=== PATIENT | female | born 1990 | race Caucasian/White ===

== ENCOUNTER 2016-06-30 13:31 | Emergency (ER) | payer MEDICAID, OTHER ==
[~2016-06-30] VITALS: Ht 152.4 cm; Wt 51.3 kg
[2016-06-30 13:47] VITALS: Ht 152.4 cm; Wt 51.3 kg
[2016-06-30 14:56] LABS: ADD SCAN DIFF NO
[2016-06-30 15:17] LABS: ADD UMIC YES; URINE BILIRUBIN (Dip) NEGATIVE (NEGATIVE); URINE BLOOD (Dip) NEGATIVE (NEGATIVE); URINE COLOR LT. YELLOW (YELLOW); URINE GLUCOSE (Dip) NEGATIVE (NEGATIVE); URINE KETONES (Dip) NEGATIVE (NEGATIVE); URINE LEUKOCYTE ESTERASE (Dip) NEGATIVE (NEGATIVE); URINE NITRITE (Dip) NEGATIVE (NEGATIVE); URINE TOTAL PROTEIN (Dip) NEGATIVE (NEGATIVE); URINE UROBILINOGEN (Dip) 0.2 E.U./dL (0.1-1.0)
--- NOTE | 2016-06-30 15:32 | RADRPT ---
PROCEDURE: US OB. CLINICAL INDICATION: Pelvic pain, viability TECHNIQUE: Transabdominal views of the pelvis are available for review. COMPARISON: No prior studies are available for comparison. FINDINGS: There is a single intrauterine gestation with the crown-rump length measuring 4.8 cm, corresponding to a gestational age of 11 weeks and 4 days. The heart rate is noted at 173 bpm. The ovaries are not visualized. There is no free fluid. RPTAT: AA IMPRESSION: Single live intrauterine with an estimated gestational age of 11 weeks and 4 days, based o n ultrasound measurements. TRE based on ultrasound measurements is 01/15/17. .Yaw Collier MD, MD Date Time Electronically viewed and signed by .Yaw Collier MD, on 06/30/2016 15:32 .S/
[2016-06-30 15:36] LABS: BASOPHIL # 0.1 10^3/ul (0.0-0.1); BASOPHILS % 0.4 % (0.0-2.0); EOSINOPHILS # 0.1 10^3/ul (0.0-0.5); EOSINOPHILS % 1.2 % (0.0-7.0); HEMATOCRIT 37.4 % (37.0-47.0); HEMOGLOBIN 12.7 g/dl (12.0-16.0); LYMPHOCYTES % 26.3 % (15.0-51.0); MEAN CORPUSCULAR HEMOGLOBIN 30.2 pg (29.0-33.0); MEAN PLATELET VOLUME 9.4 fl (7.4-10.4); MONOCYTE # 0.8 10^3/ul (0.3-0.9); MONOCYTES % 6.9 % (0.0-11.0); NEUTROPHIL # 7.4 10^3/ul (1.6-7.5); NEUTROPHILS % 64.9 % (39.0-77.0); PLATELET COUNT 259 10^3/UL (140-415); RED CELL DISTRIBUTION WIDTH 12.4 % (11.5-14.5); WHITE BLOOD COUNT 11.4 10^3/ul (4.8-10.8)
[2016-06-30 15:44] LABS: SQUAMOUS EPITHELIAL CELL,UR MANY; URINE RBCS NONE SEEN /HPF (0)
[2016-06-30] MEDS ORDERED: ACET325T33 PO (16:09)
--- NOTE | 2016-06-30 16:50 | ERD ---
ER Documentation Chief Complaint Date/Time DATE: 06/30/16 TIME: 16:46 Chief Complaint LLQ ABD PAIN X2 DAYS. SENT BY PCP TO R/O ECTOPIC. HPI This is a 26-year-old female stating that she is 9 weeks presenting to the emergency department complaining of left sided pelvic pain for the past 2 days. Patient denies any vaginal bleeding. She states that her pelvic pain is crampy and rates it 8 out of 10. Patient states that she went to her [facility] Dr.Parvaneh Torres for further evaluation management. Denies any nausea, vomiting, diarrhea, fever, dysuria. ROS All systems reviewed and are negative except as per history of present illness. Medications Home Meds Active Scripts Acetaminophen* (Tylenol*) 325 Mg Tablet, 2 TAB PO Q6 Y for PAIN AND OR ELEVATED TEMP, #30 TAB Prov:MERRITT HOUGH PA-C 06/30/16 PMhx/Soc Medical and Surgical Hx: pt denies Medical Hx History of Surgery: Yes (RIGHT OVARY CYST REMOVAL, APPY X1YEAR) Anesthesia Reaction: No Hx Alcohol Use: No Hx Substance Use: No Hx Tobacco Use: No Smoking Status: Never smoker Physical Exam Vitals Vital Signs Date Time Temp Pulse Resp B/P Pulse Ox O2 Delivery O2 Flow Rate FiO2 06/30/16 13:47 98.3 75 16 100/65 100 Physical Exam General: well-developed/well-nourished, in no apparent distress, non-toxic appearing HENT: NC/AT, bilateral tympanic membrane is normal with good cone of light, nares patent, oropharynx clear without exudates Eyes: Conjunctiva normal, PERRLA, EOMI Neck: Supple, no lymphadenopathy Pulm: CTA bilaterally, no rales, rhonchi, or wheezing heard CV: Normal S1S2 GI: Soft, non-distended, normal bowel sounds, tender to palpation in pelvic region, negative rosvings, negative ledbetter's Back: No midline tenderness, no masses, No CVAT Ext: No clubbing, cyanosis, or edema Neuro: Alert and Orientated, gait normal Skin: Intact, normal turgor Psych: Normal mood and mentation Result Diagram: 06/30/16 1444 Results 24 hrs Laboratory Tests Test 06/30/16 14:44 Basophils # 0.110^3/ul Basophils % 0.4% Beta HCG, Quantitative 73557.0mIU/ml Eosinophils # 0.110^3/ul Eosinophils % 1.2% Hematocrit 37.4% Hemoglobin 12.7g/dl Lymphocytes # 3.010^3/ul Lymphocytes % 26.3% Mean Corpuscular Hemoglobin 30.2pg Mean Corpuscular Hemoglobin Concent 34.0g/dl Mean Corpuscular Volume 89.0fl Mean Platelet Volume 9.4fl Monocytes # 0.810^3/ul Monocytes % 6.9% Neutrophils # 7.410^3/ul Neutrophils % 64.9% Nucleated Red Blood Cells # 0.010^3/ul Nucleated Red Blood Cells % 0.0/100WBC Platelet Count 93120^3/UL Red Blood Count 4.2010^6/ul Red Cell Distribution Width 12.4% Urine Amorphous Phosphates MANY Urine Bilirubin NEGATIVE Urine Clarity CLOUDY Urine Color LT. YELLOW Urine Glucose NEGATIVE% Urine Hemoglobin NEGATIVE Urine Ketones NEGATIVE Urine Leukocyte Esterase NEGATIVE Urine Microscopic RBC NONE SEEN/HPF Urine Microscopic WBC 0-2/HPF Urine Nitrite NEGATIVE Urine Specific [place] 1.020 Urine Squamous Epithelial Cells MANY Urine Starch FEW Urine Total Protein NEGATIVE Urine Urobilinogen 0.2 E.U./dL Urine pH 8.5 White Blood Count 11.410^3/ul Procedures/MDM This is a 26-year-old female stating that she is 9 weeks presenting to the emergency room complaining of pelvic pain for the past 2 days , patient was sent by her [facility] who sent her here for further evaluation management due to positive test. Patient did not have any evidence of vaginal bleeding. I will low suspicion for ectopic , urinary tract infection, diverticulitis, complete due to physical examination and diagnostic testing. Patient appears well and stable. She is smiling and speaking clearly. Lab work was done in the ED. CBC did not show any evidence of significant leukocytosis or anemia. Patient had a white count 11.4 which is likely due to stress reaction. Beta hCG was 46,910 within normal limits. An ultrasound was done in the ED did not show any evidence of a portion or ectopic . UA did not show any evidence of UTI or hemoglobin. I discussed with patient to follow-up with her [facility] tomorrow, I discussed return to the ER for any worsening symptoms. Patient stable for discharge. Prescription for Tylenol was provided. Patient understands and agrees with plan OB US: Single live intrauterine with an estimated gestational age of 11 weeks and 4 days, based on ultrasound measurements. TRE based on ultrasound measurements is 01/15/17. Departure Diagnosis: Primary Impression: Pelvic pain in Condition: Stable Patient Instructions: Pelvic Pain, Unknown Cause, Pelvic Pain In : Unclear (2-3 Trimester) Referrals: doss doctora Additional Instructions: Visite a doss gena lema para un EXAMEN.Regrese a estas instalaciones si no se mejora dg esperbamos o dg le dijimos. Regrese a estas instalaciones si no se mejora dg esperbamos o dg le dijimos. [place] toda la medicina liliam y dg se le indic. MERRITT HOUGH PA-C Jun 30, 2016 16:50
== END 2016-06-30 16:21 | disposition home or self-care (01) ==
LOC: FTE 13:31
DX: O26.891 Other specified pregnancy related conditions, first trimester (principal); R10.2 Pelvic and perineal pain; Z3A.11 11 weeks gestation of pregnancy
CPT/HCPCS: 36415; 76801; 81001; 81003; 84702; 85025; Z7502

== ENCOUNTER 2016-11-16 14:03 | Inpatient (IN) | payer MEDICAID ==
[~2016-11-16] VITALS: Ht 149.9 cm; Wt 58.6 kg
[~2016-11-16 14:03] MED LIST: ACET325T33 PO
[2016-11-16 14:26] VITALS: BP 105/67; PULSE 84; RESP 18; Ht 149.9 cm; Wt 58.6 kg
[2016-11-16] MEDS ORDERED: PRENAT PO (14:26)
[2016-11-16] MEDS: LACTATED RINGER'S 1,000 ML IV* SCH ×2 (15:27→19:25)
[2016-11-16] MEDS ORDERED: TERBUTALINE 1 MG/ML INJ SC ONE (15:30)
[2016-11-16 15:39] LABS: ADD UMIC YES; UR ASCORBIC ACID NEGATIVE (NEGATIVE); UR BILIRUBIN (Dip) NEGATIVE (NEGATIVE); UR BLOOD (Dip) NEGATIVE (NEGATIVE); UR CLARITY SLIGHTLY CLOUDY (CLEAR); UR COLOR YELLOW (YELLOW); UR GLUCOSE (Dip) NEGATIVE (NEGATIVE); UR KETONES (Dip) TRACE mg/dL (NEGATIVE); UR LEUKOCYTE ESTERASE (Dip) 3+ Leu/ul (NEGATIVE); UR NITRITE (Dip) NEGATIVE (NEGATIVE); UR RBC 1 /HPF (0-5); UR SPECIFIC GRAVITY (Dip) 1.018 (1.003-1.030); UR SQUAMOUS EPITHELIAL CELL FEW /HPF (FEW); UR TOTAL PROTEIN (Dip) NEGATIVE (NEGATIVE); UR UROBILINOGEN (Dip) NEGATIVE (NEGATIVE)
[2016-11-16 15:42] LABS: UR MUCUS FEW /HPF (NONE SEEN)
--- NOTE | 2016-11-16 16:28 | RADRPT ---
PROCEDURE: CERVICAL LENGTH ULTRASOUND CLINICAL INDICATION: labor. Uncertain dates. TECHNIQUE: Trans-vaginal imaging of the cervical canal was performed utilizing dubon-scale imaging. Sagittal and transverse images were obtained. Trans-abdominal images were also obtained. The fadi ges were reviewed on a PACS workstation. COMPARISON: None. FINDINGS: There is a single live intrauterine . heart rate is 146 beats per minute. Position is cephalic and placenta is anterior grade II. There is no placenta previa. The cervix is closed with a length of 3.6 cm. IMPRESSION: 1. Cervical length is 3.6 cm. RPTAT: QQ .Konstantin Elliott MD, MD Date Time Electronically viewed and signed by .Konstantin Elliott MD, on 11/16/2016 16:28 .R/
--- NOTE | 2016-11-16 16:56 | RADRPT ---
PROCEDURE: US biophysical profile. CLINICAL INDICATION: History of duodenal atresia. TECHNIQUE: Multiple sonographic images of the uterus were obtained. The images were revi ewed on a PACS workstation. COMPARISON: No prior studies are available for comparison. FINDINGS: There is a single live intrauterine gestation. heart rate is 141 beats per minute. The position is cephalic. The placenta is anterior grade 1 with no abruption or previa. The GOKUL is 30.0 cm. (Normal = 5-20 cm.) Dilated stomach and duodenum are likely visualized in the fetus. Breathing Movement: 2 Gross Body Movement: 2 Tone: 2 Qualitative Amniotic Fluid Volume: 2 TOTAL: 8 IMPRESSION: 1. The biophysical score is 8/8. 2. Polyhydramnios. 3. Dilated stomach and duodenum likely visualized in the fetus. (Double bubble sign). RPTAT: QQ .Konstantin Elliott MD, Date Time Electronically viewed and signed by .Konstantin Elliott MD, on 11/16/2016 16:56 .R/
--- NOTE | 2016-11-16 18:09 | TRIAGE ---
OB Triage Datetime Report Generated by CPN: 11/16/2016 18:09 Datetime: 11/16/2016 16:30 Stage of : OB Triage Maternal Assessment Level of Consciousness: Fully Conscious Labor Evaluation Frequency: 2UC/HR Monitor Mode: External Duration (sec)2399: 60-90 Quality: Moderate Resting Tone [place]: Relaxed Heart Rate FHR Baseline Rate: 135 Monitor Mode: External US Variability: Moderate 6-25 bpm Accelerations: 15X15 Decelerations: None Pain Assessment Pain Scale: 4 Pain Presence: Intermittent Pain Type: Cramping Pain Location: Abdomen Pain Goal: 3 Pain Relief Measures: Comfort Measures Membrane Status: Intact Vaginal Bleeding: None Datetime: 11/16/2016 15:30 Stage of : OB Triage Maternal Assessment Level of Consciousness: Fully Conscious Labor Evaluation Frequency: 1-8 Monitor Mode: External Duration (sec)2399: 60-180 Quality: Moderate Resting Tone [place]: Relaxed Heart Rate FHR Baseline Rate: 135 Monitor Mode: External US Variability: Moderate 6-25 bpm Accelerations: 15X15 Decelerations: None Category: Category I Pain Assessment Pain Scale: 4 Pain Presence: Intermittent Pain Type: Cramping Pain Location: Abdomen Pain Goal: 3 Pain Relief Measures: Comfort Measures Membrane Status: Intact Vaginal Bleeding: None Datetime: 11/16/2016 15:25 Vaginal Exam Dilatation (cms): 0.5 Effacement (%): 40 Station: -2 Exam By: veronica Vaginal Bleeding: None Cervix, Consistency: Firm Cervix, Position: Posterior Datetime: 11/16/2016 14:23 Assessment Type: Triage Maternal Assessment Level of Consciousness: Fully Conscious DTR's/Clonus: DTRs 2+; No Clonus Headache: Denies Blurred Vision: No Respiratory Effort: Unlabored; Regular Rhythm; Equal Expansion Breath Sounds, Left: Clear and Equal Breath Sounds, Right: Clear and Equal Nausea/Vomiting: Denies RUQ Epigastric Pain: Denies Lower Extremities Edema: None Degree: None Upper Extremities Edema: None Degree: None Facial Edema: None Fall Risk Assessment History of Falling: (0) No Secondary Diagnosis: (0) No Ambulatory Aid: (0) Bedrest/Nurse Assist IV Therapy: (0) No Gait: (0) Normal/Bedrest/Immobile Mental Status: (0) Oriented to Own Ability Fall Score: 0 Fall Risk Score Definition: No Risk: No action required Datetime: 11/16/2016 14:21 Time of Arrival: 11/16/2016 14:02 EGA: 32.5 Arrived By: Ambulatory Arrived From: Office Chief Complaint: PT SENT FROM CLINIC FOR EVAL OF PTL Movement: Present Contractions: Irregular Time Contractions Began: 11/15/2016 16:00 Rupture of Membranes: Denies Vaginal Bleeding: None Vaginal Discharge: Denies Recent Sexual Intercouse: Denies Abdominal Trauma: Not Applicable Patient Complaints: Contractions; Cramping; Back Pain Time Provider Notified: 11/16/2016 14:36 Provider Notified: CASA Initial Plan: FFN, UA, TERB, IV HYDRATION, CVL Datetime: 11/16/2016 14:19 Monitor Mode: External Monitor Mode: External US
--- NOTE | 2016-11-16 20:14 | HP ---
Date/Time of Note Date/Time of Note DATE: 11/16/16 TIME: 20:08 OB - History Hx of Present Free Text/Dictation Date: November 16, 2016 Chief Complaint: Uterine contractions : 3 Para: 2 Spontaneous : 0 Therapeutic : 0 Care: Good Care Ultrasounds: Abnormal US findings (Called by Dr. Craig the and informed that the patient has duodenal atresia. Patient also was noted to have polyhydramnios likely secondary to duodenal atresia. Her gestational glucose screening test was negative.), Other Abnormal Ultrasound Findings: Polyhydramnios Duodenal atresia Obstetrical Complications: Other (Polyhydramnios and duodenal atresia) Past Family/Social History * Past Medical, Surgical, Family and Obstetric Histories reviewed from chart. OB Admission Exam Vital Signs Vital Signs Vital Signs Date Time Temp Pulse Resp B/P Pulse Ox O2 Delivery O2 Flow Rate FiO2 11/16/16 14:26 98.5 84 18 105/67 98 Room Air Physical Exam HEENT: WNL Heart: Rhythm Normal Lungs: Clear Abdomen: WNL Cervical Dilatation: None Effacement: 0% Station: -3 Membranes: Intact Amniotic Fluid: Other (Polyhydramnios) Heart Rate: 130's Accelerations: Accelerations Present Decelerations: No Decelerations Varibility: Moderate Contractions on Admission: < 5 Minutes Apart Intensity: Moderate OB Assessment/Plan Other Assessment: IUP at 32 weeks and 5 days contractions fibronectin is positive, however cervix was long and closed and cervical length more than 2.5 cm Status post 1 dose of terbutaline and IV hydration, patient's contractions significantly spaced out Likely contractions are related to false labor pain Polyhydramnios likely due to duodenal atresia Increased risk for labor or abruption Ultrasound negative for abruption Patient does not have clinical signs and symptoms or abruption Patient will be admitted to antepartum service for monitoring Consider steroid due to polyhydramnios and risk of delivery Contractions resolved with a dose of terbutaline and IV hydration. We will continue to observe closely Will start steroid Consider magnesium if evidence of labor noted for neuro prophylaxis Neonatology/perinatology consultation tomorrow HEATHER CORMIER MD Nov 16, 2016 20:14
[2016-11-16] MEDS: BETAMET NA PHOS/AC(6 MG/ML) 5ML INJ IM SCH (20:40)
[2016-11-17] VITALS (7 sets, daily range): BP systolic 108–119; BP diastolic 64–75; PULSE 75–88; RESP 18
[2016-11-17] MEDS: BETAMET NA PHOS/AC(6 MG/ML) 5ML INJ IM SCH (02:37)
[2016-11-17] MEDS: LACTATED RINGER'S 1,000 ML IV* SCH (02:55)
[2016-11-17 02:59] LABS: ADD SCAN DIFF NO
[2016-11-17] MEDS ORDERED: CEFAZOLIN 2 GM/50 ML (PMX) 50 ML IVPB ONE (02:59)
[2016-11-17] MEDS ORDERED: MAGNESIUM SULFATE 4 GM/100 ML 100 ML ONE (02:59)
[2016-11-17] MEDS ORDERED: OXYTOCIN 30 UNITS/LR 500 ML IV PRN ×2 (03:00→07:30)
[2016-11-17] MEDS ORDERED: MAGNESIUM SULFATE 4 GM/100 ML 100 ML IV ONE (03:00)
[2016-11-17] MEDS ORDERED: METHYLERGONOVINE 0.2 MG INJ IM PRN ×2 (03:00→07:30)
[2016-11-17] MEDS ORDERED: MISOPROSTOL 200 MCG TAB PR PRN ×2 (03:00→07:30)
[2016-11-17] MEDS ORDERED: CARBOPROST 250 MCG INJ IM PRN ×2 (03:00→07:30)
[2016-11-17] MEDS ORDERED: CEFAZOLIN 2 GM/50 ML (PMX) 50 ML IV SCH (03:00)
[2016-11-17 03:02] LABS: BASOPHILS % 0.1 % (0.0-2.0); HEMATOCRIT 34.2 % (37.0-47.0); HEMOGLOBIN 11.6 g/dl (12.0-16.0); LYMPHOCYTES # 1.3 10^3/ul (0.8-2.9); MEAN CORPUSCULAR HEMOGLOBIN 29.6 pg (29.0-33.0); MEAN CORPUSCULAR HGB CONC 33.9 g/dl (32.0-37.0); MEAN CORPUSCULAR VOLUME 87.2 fl (82.0-101.0); MEAN PLATELET VOLUME 9.4 fl (7.4-10.4); MONOCYTE # 0.1 10^3/ul (0.3-0.9); MONOCYTES % 1.2 % (0.0-11.0); NEUTROPHIL # 7.6 10^3/ul (1.6-7.5); NEUTROPHILS % 84.4 % (39.0-77.0); PLATELET COUNT 228 10^3/UL (140-415); RED BLOOD COUNT 3.92 10^6/ul (4.20-5.40); RED CELL DISTRIBUTION WIDTH 12.8 % (11.5-14.5)
[2016-11-17 03:18] LABS: INR 0.93; PROTIME 12.5 Sec (12.2-14.2)
[2016-11-17 03:19] LABS: PARTIAL THROMBOPLASTIN TIME 28.7 Sec (25.0-35.0)
[2016-11-17 03:20] LABS: ALBUMIN 3.8 g/dl (3.3-4.9); ALBUMIN/GLOBULIN RATIO 0.97; BILIRUBIN,INDIRECT 0.2 mg/dl (0-1.1); BILIRUBIN,TOTAL 0.2 mg/dl (0.2-1.3); CALCIUM 9.6 mg/dl (8.4-10.2); CREATININE 0.57 mg/dl (0.44-1.00); POTASSIUM 4.5 mmol/L (3.5-5.1); TOTAL PROTEIN 7.7 g/dl (6.1-8.1)
[2016-11-17] MEDS ORDERED: OXYTOCIN 10 UNIT INJ ONE (03:32)
--- NOTE | 2016-11-17 03:44 | RADRPT ---
PROCEDURE: Biophysical profile CLINICAL INDICATION: Deceleration of heart rate baseline, history of duodenal atresia TECHNIQUE: Color and dubon-scale ultrasound images of an intrauterine gestation were obtained. COMPARISON: 11/16/2016 FINDINGS: A single live intrauterine gestation is identified in cephalic position with an estimated hear t rate of 122 beats per minute. The placenta is located anteriorly and is grade 1. GOKUL is 29.8 cm. movement 2/2. tone 2/2. breathing movement 2/2. Qualitative AFV 2/2 Total biophysical profile 12/06 IMPRESSION: 12/06 biophysical profile. Polyhydramnios with amniotic fluid index equals 29.8 cm. RPTAT: HJES .Eduar Lake MD, MD Date Time Electronically viewed and signed by .Eduar Lake MD, on 11/17/2016 03:44 .S/
[2016-11-17] MEDS ORDERED: HYDROmorphONE 2 MG/ML SYG ONE (04:10)
[2016-11-17] MEDS ORDERED: SUCCINYLCHOLINE CHLORIDE 100 MG/5 ML SYG IV ONE (04:17)
[2016-11-17] MEDS ORDERED: ROCURONIUM 50 MG INJ ONE (04:18)
[2016-11-17] MEDS ORDERED: PROPOFOL 20 ML ONE (04:18)
[2016-11-17] MEDS ORDERED: PROCHLORPERAZINE 10 MG INJ IV PRN (05:00)
[2016-11-17] MEDS ORDERED: MEPERIDINE 25 MG INJ IV PRN (05:00)
[2016-11-17] MEDS ORDERED: OXYTOCIN 30 UNITS/LR 500 ML IV SCH (05:00)
[2016-11-17] MEDS ORDERED: ALBUTEROL 0.083% (NEB) 2.5 MG/3 ML AMP HHN ONE (05:00)
[2016-11-17] MEDS ORDERED: ONDANSETRON 4 MG INJ IV PRN (05:00)
[2016-11-17] MEDS ORDERED: METOCLOPRAMIDE 10 MG INJ IV PRN (05:00)
[2016-11-17] MEDS ORDERED: HYDROmorphONE (0.2 MG/ML) 10ML SYG IV PRN ×3 (05:00→07:30)
[2016-11-17] MEDS ORDERED: DIPHENHYDRAMINE 50 MG INJ IV PRN (05:00)
[2016-11-17] MEDS ORDERED: KETOROLAC 30 MG INJ IV PRN ×3 (05:00→19:00)
[2016-11-17] MEDS: HYDROmorphONE (0.2 MG/ML) 10ML SYG IV PRN ×3 (05:09→05:28)
--- NOTE | 2016-11-17 05:11 | QN ---
Documentation Comment Late entry note I was called by antepartum nurse that the baby had persistently low baseline for the last 20 minutes in the range of 90s. Presented to the patient bedside. Patient noted to be in left-sided position and receiving oxygen given by RN. Tracing reviewed. Noted that there is intermittent dropping the baseline to 90s but with good variability. Remained at the bedside to confirm maternal pulse separately from the heart tone. Occasional audible arrhythmia also noted. Tracing retrospectively reviewed and noted that baseline was In normal range with good variability. Patient is a known patient to Dr. Craig team. Presented earlier today to triage with complaint of contractions that resolved with IV hydration and a dose of terbutaline. Per oral report by Dr. Wilks. baby has duodenal atresia recommended to. [place] if any evidence of labor Patient was admitted for observation after presented with complaint of contractions. Symptoms resolved after IV hydration and a single dose of terbutaline. Due to presence of polyhydramnios and risk for delivery she received a dose of betamethasone in the triage. I contacted perinatology credit collections manager Dr. Morgan discussed about. heart rate low baseline possibility due to a concern for possibility of cardiac abnormality . Patient noted to have polyhydramnios and duodenal atresia. stat bedside BPP was requested that reported 8/8. There was normal tone during BPP observed. Patient was transferred to L&D in anticipation of possible immediate delivery due to drop in the baseline which was a change in the tracing. . Contractions noted on the monitor. late deceleration noted x 1. Marked variability noted. Cannot rule out abruption. Decision was made to proceed with immediate delivery. Tracing reviewed by Dr. Morgan who agreed with my plan of delivery due to nonreassuring heart tracing. Second dose of steroid was given. While we were preparing to go to the OR, NICU team also was notified to be present at the time of delivery. A bolus dose of magnesium was given for neuro prophylaxis. HEATHER CORMIER MD Nov 17, 2016 05:11
--- NOTE | 2016-11-17 05:23 | OPR ---
Operative Report Planned Procedure Free Text/Dictation Patient was transferred to OR for immediate delivery due to possible abruption and nonreassuring heart tracing Discussed with the paitent with car distributor regarding heart rate abnormality and need for Emergent section. Patient Was given a dose of bolus magnesium for neuro prophylaxis second dose of steroid. given as an accelerated dose. there is evidence of duodenal atresia and the ultrasound with polyhydramnios. NICU team and OR and anesthesia was notified . Procedure date Nov 17, 2016 Procedure(s) Primary emergency section Via Pfannenstiel skin incision Performed by: HEATHER CORMIER MD Assisting provider: JANETH ROBERTSON MD Anesthesiologist: DANYELLE FLORES MD Pre-procedure diagnosis 1. Nonreassuring heart tracing 2. IUP at 32 weeks 3. Polyhydramnios 4 suspected abruption. Anesthesia Type: general Procedure Description Under satisfactory [general] anesthesia, the patient was prepped and draped and placed in a supine position, tilted to the left. Pfannenstiel incision was made , carried through the subcutaneous tissue. Bleeders brought under control with electrocautery. Fascia incised to the length of the incision. Rectus muscles from the fascia, divided midline. Peritoneum exposed, entered through a transverse incision. Exploration of abdomen revealed gravid uterus. Transverse incision was made in the lower segment of the uterus, with careful attention to the bladder. . Amniotic sac ruptured. Evidence of localized abruption [noted. Excess amount of] amniotic fluid noted, that confirmed polyhydramnios . Baby's head was grasped and was brought up to the incision. then the baby's head was delivered through the incision while the automotive service assistant was applying fundal pressure. After delivery of the baby's head the rest of the baby's body was delivered and cord was immediately clamped and cut and baby was handed to NICU team as well as RT who where present in the OR immediately. Baby had a small cry on the table right after delivery and noted to have breathing immediately after delivery on the table. the baby was handed to the team for immediate attention. Could not obtain cord gas by the nursing staff due to technical issue and short remainder of cord. Baby's reported to be 3, 3 and 7. Trouble with intubation of the baby by NICU team and RT noted 4. Anesthesia involved and help with intubation. The placenta was delivered manually intact. Uterine cavity was cleaned with wet sponge and drainage established. Uterus closed in 2 layers using [1-0 Monocryl] in continuous fashion. Second layer used for imbrication. Peritoneal cavity irrigated with warm saline . Sponge, needle and instrument count reported to be correct. Abdominal peritoneum closed with [] 2-0 Monocryl continuously. Rectus muscle approximated with [2-0 Monocryl 1-0 Monocryl]. Fascia closed with [3-0 Monocryl in a continuous subcuticular fashion. Estimated blood loss [600]mL. Post-Procedure Findings: Live Baby [], Apgars [3,7,7 ] in vertex presentation Complications Low score Difficulty intubating Pt Condition post procedure: stable Post-procedure comments Baby was transferred to NICU Placenta was sent to pathology Nursing staff could not be able to obtain cord gas Physician Certification I, the undersigned physician, hereby certify that I have discussed the procedure described in this consent form with this patient (or the patient's legal senior customer service representative), including: * The risk and benefits of the procedure; * Any adverse reactions that may reasonably be expected to occur; * Any alternative efficacious methods of treatment which may be medically viable ; * The potential problems that may occur during recuperation; * Potential for blood transfusion and associated risks/benefits; and * Any research or economic interest I may have regarding this treatment. I further certify that the patient/legally responsible person was encouraged to ask question and that all questions were answered. HEATHER CORMIER MD Nov 17, 2016 05:22
[2016-11-17] MEDS ORDERED: OXYTOCIN 30 UNITS/LR 500 ML IVPB ONE (05:30)
--- NOTE | 2016-11-17 06:25 | DELSUM ---
Delivery Summary A-C Datetime Report Generated by CPN: 11/17/2016 06:25 DELIVERY PERSONNEL Machine Oiler: Rodriguez, Crissy MATERNAL INFORMATION Delivery Anesthesia: General Medications in Delivery: SEE ANESTHESIA RECORDS Placenta Cultured: Yes Maternal Complications: Abruptio Placenta; Other Other Maternal Complications: POLYHYDRAMNIOS LABOR SUMMARY EDC: 01/16/2017 00:00 No. Babies in Womb: 1 Attempted: No Labor Anesthesia: None LABOR INFORMATION Reason for Induction: Not Applicable Oxytocin: N/A Group B Beta Strep: Not Done Antibiotics # of Doses: 1 Antibiotics Time of Last Dose: 11/17/2016 03:20 Steroids Given: Partial Course Reason Steroids Not Administered: Imminent Delivery MEMBRANES Membranes Rupture Method: Artificial Rupture of Membranes: 11/17/2016 03:31 Length of Rupture (hr): 0.02 Amniotic Fluid Color: Clear Amniotic Fluid Amount: Large STAGES OF LABOR Stage 3 hr: 0 Stage 3 min: 1 CSECTION DELIVERY Primary Indication: Nonreassuring Stat Secondary Indication: Abruptio Placenta CSection Urgency: Emergency CSection Incidence: Primary Labor: N/A Elective: N/A CSection Incision: Lower Uterine Transverse BABY A INFORMATION Infant Delivery Date/Time: 11/17/2016 03:32 Method of Delivery: Born in Route : No : N/A Forceps: N/A Vacuum Extraction: N/A Shoulder Dystocia : N/A SHOULDER DYSTOCIA BABY A Infant Delivery Date/Time: 11/17/2016 03:32 PRESENTATION/POSITION BABY A Presentation: Cephalic Cephalic Presentation: Vertex Vertex Position: Left Occipital Anterior Breech Presentation: N/A PLACENTA INFORMATION BABY A Placenta Delivery Time : 11/17/2016 03:33 Placenta Method of Delivery: Manual Removal Placenta Status: Delivered SCORES BABY A Heart Rate 1 min: Slow, Below 100 bpm Resp Effort 1 min: Slow, Irregular Reflex Irritability 1 min: Grimace Muscle Tone 1 min: Flaccid Color 1 min: Blue/Pale Resuscitation Effort 1 min: Tactile Stimulation; Oxygen; PPV/NCPAP SCORE 1 MIN: 3 Heart Rate 5 min: Slow, Below 100 bpm Resp Effort 5 min: Slow, Irregular Reflex Irritability 5 min: Grimace Muscle Tone 5 min: Flaccid Color 5 min: Blue/Pale Resuscitation Effort 5 min: Tactile Stimulation; Oxygen; PPV/NCPAP SCORE 5 MIN: 3 Heart Rate 10 min: >100 bpm Resp Effort 10 min: Good Cry Reflex Irritability 10 min: Grimace Muscle Tone 10 min: Some Flexion of Extrem Color 10 min: Body Milfay, Extremit Blue Resuscitation Effort 10 min: Oxygen; PPV/NCPAP; Endotracheal Intubation SCORE 10 MIN: 7 INFANT INFORMATION BABY A Gestational Age at Delivery: 31.3 Gestational Status: - <34 Weeks Infant Outcome : Liveborn Condition : Critical Infant Sex: Male IDENTIFICATION/MEDS BABY A ID Band Number: [id number] ID Band Location: Right Leg; Left Arm Sensor Applied: No Sensor Location : Other Vitamin K Given : Not Given Erythromycin Given: Not Given WEIGHT/LENGTH BABY A Infant Birthweight (gm): 1895 Weight (lb): 4 Infant Weight (oz): 3 Infant Length (in): 16.00 Length (cm): 40.64 CORD INFORMATION BABY A No. Cord Vessels: 3 Nuchal Cord : N/A Cord Blood Taken: Yes Suction: Mouth; Nose ASSESSMENT BABY A Complications: Extended Bradycardi Complications- Other: SEE NICU RECORD FOR BABY INFORMATION Physical Findings at Delivery: Within Normal Limits Gas Operations Superintendent/ALS Called : Yes Transferred To: NICU
[2016-11-17] MEDS ORDERED: DEXAMETHASONE 4 MG/ML 1 ML INJ ONE (07:00)
[2016-11-17] MEDS ORDERED: PHENYLephrine (100 MCG/ML) 5ML SYG ONE (07:00)
[2016-11-17] MEDS ORDERED: ONDANSETRON 4 MG INJ ONE (07:00)
[2016-11-17] MEDS ORDERED: OXYTOCIN 30 UNITS/LR 500 ML BAG IV ONE (07:00)
[2016-11-17] MEDS ORDERED: METOCLOPRAMIDE 10 MG INJ ONE (07:00)
[2016-11-17] MEDS ORDERED: LANOLIN 7 GM TUBE TOP PRN (07:30)
[2016-11-17] MEDS ORDERED: ACETAMINOPHEN/CODEINE #3 TAB PO PRN (07:30)
[2016-11-17] MEDS ORDERED: PRENATAL VITAMIN PO SCH (09:00)
[2016-11-17] MEDS: OXYTOCIN 30 UNITS/LR 500 ML IV SCH ×2 (09:26→11:10)
[2016-11-17 11:05] LABS: ADD SCAN DIFF NO
[2016-11-17 11:21] LABS: BASOPHILS % 0.1 % (0.0-2.0); HEMATOCRIT 28.4 % (37.0-47.0); HEMOGLOBIN 9.6 g/dl (12.0-16.0); LYMPHOCYTES # 1.1 10^3/ul (0.8-2.9); LYMPHOCYTES % 5.4 % (15.0-51.0); MEAN CORPUSCULAR HEMOGLOBIN 29.3 pg (29.0-33.0); MEAN CORPUSCULAR HGB CONC 33.8 g/dl (32.0-37.0); MEAN CORPUSCULAR VOLUME 86.6 fl (82.0-101.0); MEAN PLATELET VOLUME 9.5 fl (7.4-10.4); MONOCYTE # 0.8 10^3/ul (0.3-0.9); MONOCYTES % 3.7 % (0.0-11.0); NEUTROPHIL # 18.4 10^3/ul (1.6-7.5); NEUTROPHILS % 90.4 % (39.0-77.0); PLATELET COUNT 221 10^3/UL (140-415); RED BLOOD COUNT 3.28 10^6/ul (4.20-5.40); RED CELL DISTRIBUTION WIDTH 12.7 % (11.5-14.5); WHITE BLOOD COUNT 20.4 10^3/ul (4.8-10.8)
[2016-11-17] MEDS ORDERED: IBUPROFEN 600 MG TAB PO SCH (12:00)
[2016-11-17] MEDS: LACTATED RINGER'S 1,000 ML IV SCH ×2 (14:04→22:41)
[2016-11-18] VITALS: BP 96/60; PULSE 70; RESP 18
[2016-11-18 04:00] VITALS: BP 100/61; PULSE 78; RESP 18
[2016-11-18] MEDS: LACTATED RINGER'S 1,000 ML IV SCH ×2 (06:03→07:10)
[2016-11-18] MEDS: IBUPROFEN 600 MG TAB PO SCH ×4 (06:30→23:31)
[2016-11-18 08:00] VITALS: BP 101/70; PULSE 81; RESP 19
[2016-11-18 16:00] VITALS: BP 107/67; PULSE 80; RESP 17
[2016-11-18 16:10] LABS: BASOPHILS % 0.1 % (0.0-2.0); HEMATOCRIT 25.6 % (37.0-47.0); HEMOGLOBIN 8.3 g/dl (12.0-16.0); LYMPHOCYTES # 1.8 10^3/ul (0.8-2.9); LYMPHOCYTES % 11.6 % (15.0-51.0); MEAN CORPUSCULAR HEMOGLOBIN 28.6 pg (29.0-33.0); MEAN CORPUSCULAR HGB CONC 32.4 g/dl (32.0-37.0); MEAN CORPUSCULAR VOLUME 88.3 fl (82.0-101.0); MEAN PLATELET VOLUME 9.8 fl (7.4-10.4); MONOCYTE # 1.1 10^3/ul (0.3-0.9); MONOCYTES % 7.1 % (0.0-11.0); NEUTROPHIL # 12.6 10^3/ul (1.6-7.5); NEUTROPHILS % 80.6 % (39.0-77.0); PLATELET COUNT 252 10^3/UL (140-415); RED CELL DISTRIBUTION WIDTH 13.2 % (11.5-14.5); WHITE BLOOD COUNT 15.6 10^3/ul (4.8-10.8)
--- NOTE | 2016-11-18 16:11 | PN ---
Date/Time of Note Date/Time of Note DATE: 11/18/16 TIME: 16:04 OB Subjective Subjective Subjective .Post day1 She had an emergency on November 17, 2016 suspected abruptio placentae Today she is afebrile but her wbc is 20,000 ,lying in her bed seems she is in no distress except some mild incisional pain her abdomen is soft her incision is dry lochia moderate extremities normal no calf tenderness no dyspnea no shortness of breath recommended repeat CBC currently she is on Ancef 2 g every 8 hours OB Objective Heart: Rhythm Normal Lungs: Clear, Equal Abdomen: WNL Extremities: Normal Reflexes: Normal SUJATHA RODRIGUEZ MD Nov 18, 2016 16:11
[2016-11-18] MEDS: CEFAZOLIN 2 GM/50 ML (PMX) 50 ML IVPB SCH ×2 (16:49→21:29)
[2016-11-18 19:45] VITALS: BP 101/59; PULSE 68; RESP 18
[2016-11-19 04:00] VITALS: BP_SYST 112; BP_SYST 97; BP_DIAS 54; BP_DIAS 64; PULSE 53; PULSE 60; RESP 18
[2016-11-19] MEDS: CEFAZOLIN 2 GM/50 ML (PMX) 50 ML IVPB SCH ×3 (05:37→22:07)
[2016-11-19] MEDS: IBUPROFEN 600 MG TAB PO SCH ×4 (05:37→23:31)
[2016-11-19 08:05] VITALS: BP 91/61; PULSE 53; RESP 20
--- NOTE | 2016-11-19 10:52 | PN ---
Date/Time of Note Date/Time of Note DATE: 11/19/16 TIME: 10:51 OB Subjective Subjective Subjective Post day 2 Afebrile abdomen soft bowel sounds lochia moderate extremity in enema recommended ambulation encouraged SUJATHA RODRIGUEZ MD Nov 19, 2016 10:52
[2016-11-19] MEDS ORDERED: NA PHOSPHATE/BIPHOS 133 ML ENEMA PR ONE (11:00)
[2016-11-19 16:00] VITALS: BP 100/61; PULSE 53; RESP 18
[2016-11-19 20:00] VITALS: BP 96/61; PULSE 65; RESP 15
[2016-11-20 03:44] VITALS: BP 108/72; PULSE 55; RESP 16
[2016-11-20] MEDS: CEFAZOLIN 2 GM/50 ML (PMX) 50 ML IVPB SCH ×2 (05:52→14:00)
[2016-11-20] MEDS: IBUPROFEN 600 MG TAB PO SCH ×2 (05:52→11:58)
[2016-11-20 07:51] VITALS: BP 103/72; PULSE 55; RESP 20
[2016-11-20] MEDS ORDERED: MEASLES,MUMPS,RUBELLA VACCINE INJ SC* ONE (09:00)
[2016-11-20] MEDS ORDERED: DIPHTH/TET/ACEL PERTUSS (ADULT) 0.5 ML VIAL IM* ONE (09:00)
--- NOTE | 2016-11-20 13:02 | PD.PPDC ---
CERTIFIED [employer] Discharge Instruction Condition Patient Condition: Good Diet Diet: Resume Regular Diet Activity/Restrictions Activity: Normal Activity May Shower Restrictions: No Exercising No Lifting No Driving No Sexual Activity Nothing in the Vagina No [place] No Tampons, douche Wound/Drain Care Instructions Wound/Drain Care Instructions: Remove Steri Strips in 1 week Follow-up Follow-up with Physician: 4, Day/Days Provider Information: Post instructions given recommended patient to make appointment with the clinic in 1 week Return to clinic for [employer] Instructions: Fever greater than 101 Chills Worsening abdominal pain Excessive Vaginal Bleeding More than 2 pads per hour Unable to tolerate diet OB Instructions: Breast Tenderness Depression Blurried Vision Headache Surgical Instructions: Incisional Drainage Incisional Redness SUJATHA RODRIGUEZ MD Nov 20, 2016 13:02
[2016-11-20 13:06] LABS: BASOPHILS % 0.1 % (0.0-2.0); EOSINOPHILS # 0.1 10^3/ul (0.0-0.5); EOSINOPHILS % 0.7 % (0.0-7.0); HEMATOCRIT 26.1 % (37.0-47.0); HEMOGLOBIN 8.8 g/dl (12.0-16.0); LYMPHOCYTES # 3.3 10^3/ul (0.8-2.9); LYMPHOCYTES % 29.9 % (15.0-51.0); MEAN CORPUSCULAR HGB CONC 33.7 g/dl (32.0-37.0); MEAN CORPUSCULAR VOLUME 89.1 fl (82.0-101.0); MONOCYTE # 0.9 10^3/ul (0.3-0.9); MONOCYTES % 8.6 % (0.0-11.0); NEUTROPHIL # 6.6 10^3/ul (1.6-7.5); NEUTROPHILS % 60.3 % (39.0-77.0); PLATELET COUNT 241 10^3/UL (140-415); RED BLOOD COUNT 2.93 10^6/ul (4.20-5.40); WHITE BLOOD COUNT 10.9 10^3/ul (4.8-10.8)
--- NOTE | 2016-11-20 13:07 | DS ---
Date/Time of Note Date/Time of Note DATE: 11/20/16 TIME: 13:02 Discharge Summary Admission/Discharge Info Admit Date/Time Nov 16, 2016 at 17:40 Discharge Date/Time November 20, 2016 at 1300 Discharge Diagnosis Post day 3 Patient Condition: Good Procedures Date 3 post Hx of Present Illness Day 3 post primary section at [address] Salmon Hospital Course Satisfactory recovery incision check time of discharge free of inflammation and infection post instructions given recommended to make appointment to be seen at the clinic in 1 week Home Meds Reported Medications Multivit/Min/Fol Ac/Iron/Pren* ( S*) 1 Tab Tab, 1 TAB PO DAILY, TAB 11/16/16 Discontinued Scripts Acetaminophen* (Tylenol*) 325 Mg Tablet, 2 TAB PO Q6 Y for PAIN AND OR ELEVATED TEMP, #30 TAB Prov:MERRITT HOUGH PA-C 06/30/16 Follow-up Plan Recommended to make appointment to be seen at the clinic in 1 week Primary Care Provider Care Physician No Primary Time spent on discharge: < 30 minutes Pending Labs Laboratory Tests Test 11/20/16 12:39 White Blood Count Pending Red Blood Count Pending Hemoglobin Pending Hematocrit Pending Mean Corpuscular Volume Pending Mean Corpuscular Hemoglobin Pending Mean Corpuscular Hemoglobin Concent Pending Red Cell Distribution Width Pending Platelet Count Pending Mean Platelet Volume Pending SUJATHA RODRIGUEZ MD Nov 20, 2016 13:07
== END 2016-11-20 15:50 | disposition home or self-care (01) | DRG 765 ==
LOC: L-D 14:03 → OBT 14:03 → OBG 17:40 → OBT 17:40 → L-D 11-17 02:53 → PP1 11-17 09:50
PROVIDERS: ADMIT Obstetrics & Gynecology; ATTEND Obstetrics & Gynecology
PROC: 3E033VJ Introduction of Other Hormone into Peripheral Vein, Percutaneous Approach (ICD-10-PCS; 2016-11-17)
PROC: 10D00Z1 Extraction of Products of Conception, Low, Open Approach (ICD-10-PCS; principal; 2016-11-17 03:15)
PROC: 3E00X4Z Introduction of Serum, Toxoid and Vaccine into Skin and Mucous Membranes, External Approach (ICD-10-PCS; 2016-11-20)
DX: O60.14X0 Preterm labor third trimester with preterm delivery third trimester, not applicable or unspecified (principal); O40.3XX0 Polyhydramnios, third trimester, not applicable or unspecified; O76 Abnormality in fetal heart rate and rhythm complicating labor and delivery; Z23 Encounter for immunization; Z3A.32 32 weeks gestation of pregnancy; Z37.0 Single live birth
CPT/HCPCS: 36415; 76817; 76818; 80053; 81001; 82731; 85025; 85610; 85730; 86850; 86900; 86901; 88307; 90715; 94664; 94760; 96360; 96361; G0463; J0690; J0702; J1100; J1170; J1885; J2370; J2405; J2590; J2765; J3105; J7120; J7999